=== PATIENT | female | born 1990 ===

== ENCOUNTER → 2020-10-17 | Outpatient (CLI) | payer OTHER ==
[~2020-10-17] MED LIST: ALBU2.5V8 IH; PROP10TA PO; RIZA10TA PO
--- NOTE | 2020-10-17 14:56 | PDOC1 ---
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 Patient reports she landed on her sacrum and tailbone with significant impact falling approximately 12feet. Patient ports that since that time she has had significant pain in the tailbone itself had x- rays initially which showed a focal angulation of the anterior cortex of the lower coccygeal segment possibly age-indeterminate fracture. Patient had repeat x-ray of the coccyx September 09, 2020 showing lower coccygeal segment demonstrates mild anterior cortical angulation may represent old fracture. Patient reports he has significant pain mostly with sitting but also with standing walking especially with running or jogging with significant pain in the tailbone and the coccyx region itself with some radiation into the perineal region as well. Patient reports intermittent intensity does not awaken her from sleep at night better with laying down or standing and not moving but worse with walking fast or running and especially sitting. Patient rates her disability rating 0-10 10 me the worst is a 6 with him home responsibilities recreation 3 with social activity 8 with occupation 0 sexual [employer] self-care and life support activities. Patient has tried [id number] ibuprofen as well as Tylenol also Aleve without significant decrease in pain. Patient did try physical therapy as well which is not significantly helpful for decreasing the pain. Patient reports no radiation of lower extremities no loss of motor function. PAST MEDICAL HISTORY: PMH: Idiopathic shortness of breath PREVIOUS SURGERIES: Past Surgical Hx: LASEK procedure 2016 CURRENT MEDICATIONS: Current Meds: Active Scripts Medications Dose Route/Sig Max Daily Dose Days Date Category Proair Hfa (Albuterol Sulfate) 8.5 Gm Hfa.aer.ad 2 Puff IH PRN Q4-6HRS PRN 21 10/17/20 Reported Propranolol Hcl 10 Mg Tablet Unknown Dose PO DAILY 10/17/20 Reported Maxalt (Rizatriptan Benzoate) 10 Mg Tablet 1 Tab PO UD 10/17/20 Reported ALLERGIES; Allergies: Coded Allergies: No Known Drug Allergies (Unverified , 10/17/20) FAMILY HISTORY: Family Hx: Diabetes, cancers, depression, Graves' disease SOCIAL HISTORY: Social Hx: Patient makes 1-2 alcoholic drinks a month on average does not smoke not use any illegal illicit or recreational drugs is lives with her spouse has 1 child living at home and lives locally in [facility] and is active duty. REVIEW OF SYSTEMS: ROS: Positive for those items mentioned in history of present illness, all systems are reviewed, otherwise negative ,and are complete full and well-documented on patient's chart. PHYSICAL EXAM: VS: Blood pressure is 121/71 pulse 72 respirations 18 temperature 98.8 F height is 5 feet 3 inches weight is 132 pounds PE: PHYSICAL EXAMINATION: GENERAL: The patient is awake, alert, oriented, appropriate, very pleasant demeanor HEENT: Shows normocephalic, atraumatic. Extraocular movements are intact and symmetrical. Oral cavity: Mucous membranes moist and pink. Dentition is intact. NECK: Shows anterior throat supple without palpable lymphadenopathy noted. Swallow reflex symmetrical. CHEST: Shows normal on inspection. Breath sounds are clear bilaterally, no rales rhonchi wheezes auscultated. HEART: Shows S1, S2 clear. No murmurs auscultated. ABDOMEN: Soft, nontender, nondistended, flat. No palpable organomegaly is noted. No rebound or guarding demonstrated. BACK: Shows spine grossly in the midline. Normal-appearing cervical lordotic curvature. There is slightly increased thoracic kyphosis, some minor flattening of the lumbar lordotic curvature. Lumbar paraspinous muscles show symmetrical on inspection, on palpation shows some moderate tenderness diffusely throughout the upper, middle and lower distribution of the paraspinous muscles without specific trigger points, without radiation of pain. The patient has good rotational motion of the lumbar spine, both laterally as well as extension and flexion without significant difficulty. Patient's sacrum and coccyx shows significant tenderness over the sacrococcygeal ligament and the coccyx itself without specific displacement on palpation. No radiation is demonstrated with palpation. EXTREMITIES: Lower extremities show deep tendon reflexes 2+ in the patellar and tendo calcaneus tendons. Motor exam is 5 on a scale of 5 with right dorsiflexion, extension, quadriceps and hamstring flexion and 5/5 on the left. Peripheral pulses are 1+ posterior tibial. No peripheral edema is noted bilaterally. Lower extremities are warm and dry to touch, equal in color and appearance. Straight leg raise noted to be bilaterally. Gaenslen's and Negro's maneuvers are negative as well. The patient is able to stand, stand on her toes that difficulty loss of balance walks with a normal-appearing gait not appear to favor the right of lower extremities not use any assistive devices to ambulate.. SKIN: Shows warm and dry, good turgor. No edema. No sores, rashes or bruising throughout. 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 Shortness of breath Plan: Options were discussed with the patient including conservative medical management physical therapies interventional techniques that she like to pursue interventional techniques. We discussed a sacrococcygeal ligament injection using description as well as anatomical models to describe the procedure. Patient will wait for preauthorization with insurance provider and return for sa crococcygeal ligament injection at that time. ALEJANDRINA SUN MD Oct 17, 2020 14:56
== END | disposition home or self-care (01) ==
LOC: PNCL 13:03
PROVIDERS: ATTEND Anesthesiology
DX: M54.5 Low back pain (principal); Z79.899 Other long term (current) drug therapy
CPT/HCPCS: 99205; G0463

== ENCOUNTER → 2020-11-17 | Outpatient (CLI) | payer OTHER ==
[~2020-11-17] MED LIST changes: +BUPIVACAINE MPF 0.25% 10 ML VIAL. ONE; +ESCITALOPRAM OX10 MG PO; +IOHEXOL 180 MG/ML 10 ML VIAL. ONE; +methylPREDNISolone ACETATE 80 MG/ML VIAL. ONE
--- NOTE | 2020-11-17 08:27 | PDOC ---
Progress Note - Pain Clinic Date of Service: DOS: DATE: 11/17/20 TIME: 08:23 Diagnosis: Dx: Coccygdynia History or Present Illness: HPI: 30-year-old female returns for follow-up status post initial evaluation preauthorization for sacrococcygeal ligament injection. Patient has obtained that now would like to proceed reports still significant pain in the coccyx itself with sitting also standing walking changing positions patient reports she has change positions at her job where she is not on her feet as much and this is helped slightly but still significant pain with sitting standing changing positions and shifting. Patient reports no radiation of the pain is in the inferior tailbone as it was previously patient rates her pain as a 5 on a scale 10 is worse over the past week 5 on average 3 days least is a 5 today patient describes aching and dull on and off in intensity again worse with activity wil ding walking generally does not awaken her from sleep is better with laying down. Patient reports no new motor or sensory deficits or other complaints. Physical Exam: VS: Blood pressure is 122/75 pulse 70 respirations are 16 temperature is 98.1 F 5 feet 3 inches weight is 129 pounds PE: PHYSICAL EXAMINATION: GENERAL: The patient is awake, alert, oriented, appropriate, very pleasant demeanor HEENT: Shows normocephalic, atraumatic. Extraocular movements are intact and symmetrical. NECK: Shows anterior throat supple without palpable lymphadenopathy noted. Swallow reflex symmetrical. CHEST: Shows normal on inspection. Breath sounds are clear bilaterally. HEART: Shows S1, S2 clear. No murmurs auscultated. ABDOMEN: Soft, nontender, nondistended. No palpable organomegaly is noted. BACK: Shows spine grossly in the midline. Normal-appearing cervical lordotic curvature. There is slightly increased thoracic kyphosis, some minor flattening of the lumbar lordotic curvature. Lumbar paraspinous muscles show symmetrical on inspection, on palpation shows some moderate tenderness diffusely throughout the upper, middle and lower distribution of the paraspinous muscles without specific trigger points, without radiation of pain. The patient has good rotational motion of the lumbar spine, both laterally as well as extension and flexion without significant difficulty. No tenderness over the spinous processes, sacrum or sacroiliac regions. Patient has significant tenderness over the inferior aspect of the sacrum and the coccyx with direct palpation with very tender but nonmobile sacrococcygeal ligament. EXTREMITIES: Lower extremities show deep tendon reflexes 2+ in the patellar and tendo calcaneus tendons. Motor exam is 5 on a scale of 5 with right dorsiflexion, extension, quadriceps and hamstring flexion and 5/5 on the left. Peripheral pulses are 1+ posterior tibial. No peripheral edema is noted bilaterally. Lower extremities are warm and dry to touch, equal in color and appearance. SKIN: Shows warm and dry, good turgor. No edema. No sores, rashes or bruising throughout. Procedure: Procedure: Options were discussed with the patient. Patient chart reviews her current medication regimen updated current review of systems updated today as well. We will proceed with a sacrococcygeal ligament today with fluoroscopic guidance. Risks discussed including but limited to bleeding infection possibility of intravascular injection sequelae spread local anesthetic numbness side effects steroid medication exposure fluoroscopy and portals regarding pain control. P atient understands wished to proceed. Patient return to clinic in approximate 2 weeks for follow-up, was counseled as return appointment activity level and side effects to be aware of. Medication Injected: Med Injected: Under sterile prep and drape patient in prone position using C-arm fluoroscopic guidance patient's sacrum and coccyx was sterilely prepped and draped in usual fashion using a 25-gauge needle under direct fluoroscopic visualization sacrococcygeal ligament was entered using 1 cc of contrast showed good spread both posteriorly and within the ligament itself without extravasation without uptake or washout. At this time solution containing 3 cc 0.25% ropivacaine and 80 mg Depo-Medrol was then injected after negative aspiration. Needle was withdrawn and sterile bandage was applied. Patient tolerated the procedure well had no complications. Condition at Discharge: Condition at Discharge: Condition at discharge stable, patient alert the procedure well and had no complications. ALEJANDRINA SUN MD Nov 17, 2020 08:27
--- NOTE | 2020-11-17 08:27 | PDOC4 ---
PROCEDURE Procedure Patient was consented for sacrococcygeal ligament injection with fluoroscopic guidance. Risks are discussed including but not limited to bleeding infection possibility of intravascular injection sequelae spread local anesthetic numbness side effects of steroid medication and portal scarring pain control. Patient understands wished to proceed. Under sterile prep and drape patient in prone position using C-arm fluoroscopic guidance patient's sacrum and coccyx was sterilely prepped and draped in usual fashion using a 25-gauge needle under direct fluoroscopic visualization sacrococcygeal ligament was entered using 1 cc of contrast showed good spread both posteriorly and within the ligament itself without extravasation without uptake or washout. At this time solution containing 3 cc 0.25% ropivacaine and 80 mg Depo-Medrol was then injected after negative aspiration. Needle was withdrawn and sterile bandage was applied. Patient tolerated the procedure well had no complications. ALEJANDRINA SUN MD Nov 17, 2020 08:27
== END | disposition home or self-care (01) ==
LOC: PNCL 07:27
PROVIDERS: ATTEND Anesthesiology
DX: M53.3 Sacrococcygeal disorders, not elsewhere classified (principal); Z79.899 Other long term (current) drug therapy
CPT/HCPCS: 20605; 77002; J1040; J3490; Q9965; 20600

== ENCOUNTER → 2020-12-01 | Outpatient (CLI) | payer OTHER ==
[~2020-12-01] MED LIST changes: -BUPIVACAINE MPF 0.25% 10 ML VIAL. ONE; -IOHEXOL 180 MG/ML 10 ML VIAL. ONE; -methylPREDNISolone ACETATE 80 MG/ML VIAL. ONE
--- NOTE | 2020-12-01 08:25 | PDOC ---
Progress Note - Pain Clinic Date of Service: DOS: DATE: 12/01/20 TIME: 08: Diagnosis: Dx: Coccydynia History or Present Illness: HPI: 30-year-old female returns for follow-up status post sacrococcygeal ligament injection on November 17, 2020. Patient reports a few days the pain was increased after the injection and then it completely resolved patient reports 100% improvement the pain is completely gone at this time. Patient reports occasionally she may feel some twinge of pain when she is sitting for prolonged periods but is gone as soon as she stands up. Patient reports he can increase her activity greater ease and comfort travel with greater ease to doing walking distances household activities work activities without any impairment and with much greater ease and comfort patient rates her pain a 0 at all times in the last week average worst least and is a 0 on a scale of 10 today patient reports no new motor or sensory deficits no new difficulties with activity she is been working outside increasing activity unfortunately and is sleeping well at night without disturbance from the pain. Patient reports no new motor or sensory deficits no new bowel or bladder incontinence or other complaints. Patient is quite pleased with her progress thus far. Physical Exam: VS: Blood pressure is 121/71 pulse 70 respirations 18 temperature 90.1 F height is 5 feet 3 inches weight is 128 pounds PE: PHYSICAL EXAMINATION: GENERAL: The patient is awake, alert, oriented, appropriate, very pleasant demeanor HEENT: Shows normocephalic, atraumatic. Extraocular movements are intact and symmetrical. NECK: Shows anterior throat supple without palpable lymphadenopathy noted. Swallow reflex symmetrical. CHEST: Shows normal on inspection. Breath sounds are clear bilaterally. HEART: Shows S1, S2 clear. No murmurs auscultated. ABDOMEN: Soft, nontender, nondistended. No palpable organomegaly is noted. No rebound or guarding demonstrated. BACK: Shows spine grossly in the midline. Normal-appearing cervical lordotic curvature. There is slightly increased thoracic kyphosis, some flattening of the lumbar lordotic curvature. Lumbar paraspinous muscles show symmetrical on inspection, on palpation shows some very mild tenderness diffusely throughout the upper, middle and lower distribution of the paraspinous muscles without specific trigger points, without radiation of pain. The patient has good rotational motion of the lumbar spine, both laterally as well as extension and flexion without significant difficulty. No tenderness over the posterior superior iliac spine and sacroiliac regions or the sacrum itself. With palpation over the sacrococcygeal junction no significant tenderness is demonstrated on exam today. EXTREMITIES: Lower extremities show deep tendon reflexes 2+ in the patellar and tendo calcaneus tendons. Motor exam is 5 on a scale of 5 with right dorsiflexion, extension, quadriceps and hamstring flexion and 5/5 on the left. Peripheral pulses are 1+ posterior tibial. No peripheral edema is noted bilaterally. Lower extremities are warm and dry. SKIN: Shows warm and dry, good turgor. No edema. No sores, rashes or bruising throughout. Procedure: Procedure: Options were discussed with patient. Patient chart was reviewed as her current medication regimen updated current systems updated today as well. We will hold on any further injections at this time as patient is doing quite a bit better. We will have her increase activity as tolerated she was encouraged to maintain stretching strength exercise as well as working out as currently and caution with prolonged sitting patient also is planning on getting a donut for any prolonged sitting that she may be involved with in the future. At this time patient will follow up in as-needed basis. Medication Injected: Med Injected: None Condition at Discharge: Condition at Discharge: Condition at discharge is stable. ALEJANDRINA SUN MD Dec 01, 2020 08:25
== END | disposition home or self-care (01) ==
LOC: PNCL 07:55
PROVIDERS: ATTEND Anesthesiology
DX: M54.5 Low back pain (principal); Z79.899 Other long term (current) drug therapy
CPT/HCPCS: 99212; G0463